=== PATIENT | female | born 1975 | race Caucasian/White ===

== ENCOUNTER 2021-09-03 21:42 | Emergency (ER) | payer OTHER, SELFPAY ==
[2021-09-03 22:08] VITALS: BP 123/85; PULSE 75; RESP 16; TEMP 37.1; O2SAT 97; BMI 30.5
--- NOTE | 2021-09-03 23:18 | CRLHL7_ITS ---
For Patients: As a result of the Cures Act, medical imaging exams and procedure reports are released immediately into your electronic medical record. You may view this report before your referring provider. If you have questions, please contact your health care provider. INDICATION: Toe laceration. COMPARISON: None available. TECHNIQUE: The right great toe is examined with AP, lateral, and oblique views. There is no sign of fracture or dislocation. There is partial avulsion of the toenail of the great toe with prominent dorsal angulation of the toenail. There is no sign of any associated radiopaque foreign body. The soft tissues are normal in appearance without sign of radio-opaque foreign body. No degenerative disease is seen. IMPRESSION: Partial avulsion of the toenail of the great toe with no signs of any associated radiopaque foreign body or osseous injury. Dictated by North Gardner MD @ 09/04/2021 12:51:26 AM (Electronically Signed)
--- NOTE | 2021-09-04 00:17 | ED.NURSE ---
2018 was last Tdap
[2021-09-04] MEDS: LIDOCAINE 1% 20 ML VIAL 10 ML INJECTION (00:24)
--- NOTE | 2021-09-04 00:49 | ED.GENADULT ---
HPI - General Adult General Date Seen: 09/04/21 Chief complaint: Laceration/Wound Stated complaint: Injured RT big toe Time Seen by Provider: 09/04/21 00:02 Source: patient Mode of arrival: ambulatory Limitations: no limitations History of Present Illness HPI narrative: 46-year-old female who was walking down a dark hallway in her home. She is on she was walking through an open door however the door was closed in her right great toe went under the door partially avulsing her toenail. Her last tetanus was in 2018. They wrapped up the toe at home and presented to the ER. Related Data Home Medications Medication Instructions Recorded Confirmed No Known Home Medications 09/03/21 09/03/21 Allergies Allergy/AdvReac Type Severity Reaction Status Date / Time No Known Drug Allergies Allergy Verified 09/03/21 22:11 Review of Systems Status of ROS: Reports: 6 or more systems reviewed and unremarkable except as noted in History and below PFSH PFSH Social History Smoking Status: Former smoker What tobacco products do you use: cigarettes How often do you have a drink containing alcohol: 2-4 times a month AUDIT-C Alcohol total score: 2 Non-prescribed substance use: denies use service: No Exam Narrative: Exam Narrative: Examination is limited to the right foot. Her great toenail use of 90% avulsed. The proximal nail fold is still intact. Bleeding is minimal. X-ray confirms no fracture. Const: Vital Signs, click to edit/add: Vital Signs - 24 hr 09/03/21 22:08 Temperature 98.8 F Pulse Rate [Right Pulse Oximeter] 75 Respiratory Rate 16 Blood Pressure [Le ft Upper Arm] 123/85 Pulse Oximetry 97 Course Course Hospital Course: Following verbal consent a digital block is placed with 1% lidocaine. A rubber band tourniquet is used. A nail elevator and iris scissors is used to free the nail from the proximal nail fold. The nail is removed completely and intact. The underlying nail bed is minimally bleeding. It is aggressively cleaned with Hibiclens. Bacitracin and two gauze is applied. Patient tolerated this well. Estimated blood loss is less than 1 mL. Vital Signs Vital signs: Initial Vital Signs Temperature 98.8 F 09/03/21 22:08 Temperature Source Temporal Artery Scan 09/03/21 22:08 Pulse Rate 75 09/03/21 22:08 Respiratory Rate 16 07/12/22 22:08 Blood Pressure 123/85 09/03/21 22:08 Blood Pressure Mean 97 09/03/21 22:08 Blood Pressure Position Sitting 09/03/21 22:08 Pulse Oximetry 97 09/03/21 22:08 Oxygen Delivery Method 09/03/21 22:08 Vital Signs Temperature 98.8 F 09/03/21 22:08 Pulse Rate 75 09/03/21 22:08 Respiratory Rate 16 09/03/21 22:08 Blood Pressure 123/85 09/03/21 22:08 Pulse Oximetry 97 09/03/21 22:08 Temperature 98.8 F 09/03/21 22:08 Pulse Rate 75 09/03/21 22:08 Respiratory Rate 16 09/03/21 22:08 Blood Pressure 123/85 09/03/21 22:08 Pulse Oximetry 97 09/03/21 22:08 Discharge Plan Discharge Clinical Impression: Avulsion of toenail of right foot Patient Disposition: Home, Self-Care Condition: Improved Additional Instructions: Keep dressing in place for 2-3 days and then change daily. Topical Bacitracin. Watch for signs of infection. Tylenol or Ibuprofen for pain. Keep toe clean, dry, and protected. Activity Level: Activity as Tolerated Prescriptions: No Action No Known Home Medications 0RF Stand Alone Forms: [facility] Info Instructions Procedures Nail Procedure Written consent by: patient (Verbal) Location (toes): first digit Procedure performed: nail avulsion Sterile prep: chlorhexidine Procedure successful: Yes Patient tolerated procedure: well
--- NOTE | 2021-09-04 01:01 | ED.NURSE ---
toe wrapped with tube gauze. CMS intact before and after applied.
[2021-09-04 01:20] VITALS: PULSE 70; RESP 16; O2SAT 99
== END 2021-09-04 01:21 | disposition home or self-care (01) ==
LOC: ED 09-04 01:14
PROVIDERS: Emergency Provider Family Medicine
DX: S91.201A Unspecified open wound of right great toe with damage to nail, initial encounter (principal); W22.8XXA Striking against or struck by other objects, initial encounter; Y92.019 Unspecified place in single-family (private) house as the place of occurrence of the external cause
CPT/HCPCS: 11730; 73660; 99281; 99283